=== PATIENT | female | born 1985 | race Caucasian/White ===

== ENCOUNTER 2016-08-23 08:10 | Emergency (ER) | payer MEDICAID ==
[~2016-08-23] VITALS: Ht 167.6 cm; Wt 77.3 kg
[~2016-08-23 08:10] MED LIST: ULTRAM50 MG PO
[2016-08-23 08:15] VITALS: BP 120/83; PULSE 85; RESP 16; O2SAT 100
--- NOTE | 2016-08-23 09:09 | ED.REPORT ---
HPI-Preg Under 20 Weeks Date of Service Aug 23, 2016 ED Provider: Jesse Sullivan MD 30 year old female who is 7 weeks , presents to the ER accompanied by her boyfriend complaining of vaginal bleeding and abdominal cramping onset today at 07:00 with concern for miscarriage. She reports that the cramping is similar to that associated with her normal menstrual cycle, with less bleeding. Patient denies back pain, urinary symptoms, pulmonary symptoms, nausea, vomiting, and diarrhea. Last drink was two days ago. Nursing Notes Stated Complaint: POSSIBLE MISCARRIAGE Chief Complaint: Female Abdominal Pain Nursing Notes Reviewed: Yes Allergies: Coded Allergies: No Known Allergies (Unverified , 03/09/12) Scheduled Tramadol-Expunged Drug, Do Not Renew! (Ultram-Expunged Drug, Do Not Renew!) 50 Mg Tab 50 MG PO Q6HP General Time Seen by Provider: 09:08 Chief Complaint Abdominal cramping, , Vaginal bleeding Hx Obtained From: Patient Arrived By: Walk-in Onset Occurred: 1 - 4 hours ago Symptom Duration: Since onset Location: : Abdomen lower Quality: Cramping Severity: Current: Moderate Severity: Maximum: Moderate Associated with: Denies: Blood in urine, Dysuria, Fever, Hematuria, Nausea, UTI symptoms, Vomiting Pertinent Negative: Pt denies other symptoms Similar Sx Previous: No Past Medical History Past Medical History Past Surgical History Reports: Smoking History Current Every Day Smoker Social History Alcohol Use: 1-3 per week Other Social History: Good social support Ambulatory Status Independent Review of Systems Constitutional: Denies: Chills, Fever Respiratory: Denies: Non-productive cough, Shortness of breath Cardiovascular: Denies: Chest pain GI: Denies: Diarrhea, Nausea, Vomiting Female: Reports: Pelvic pain, , Vaginal bleeding - abnl, Denies: Dysuria, Flank pain, Hematuria, Incontinence, Urinary frequency, Urinary urgency, Urination decreased, Urination increased Complete sys rev & neg: except as marked. Physical Exam Initial Vital Signs Vital Signs (First) Date Time Temp Pulse Resp B/P Pulse Ox O2 Delivery O2 Flow Rate FiO2 08/23/16 08:15 36.8 85 16 120/83 100 Initial VS: Reviewed Head / Eyes: Atraumatic, Normocephalic Neck: Supple, Non-tender, Full range of motion Respiratory: Breath sounds normal, Clear to auscultation, No respiratory distress Cardiovascular: Regular rate & rhythm, Heart sounds normal, Intact distal pulses Extremities: Vascular intact, Neuro intact, No swelling, No tenderness Skin: Warm, Dry, No cyanosis Neurologic: Alert, Oriented, Nonfocal Psychiatric: Mood/affect normal, Behavior normal, Normal thought content General/Constitutional: Awake, Alert, Well developed, Well nourished Abdomen: Soft, Non-tender, No guarding, No rebound, No distention Female Genitourinary: Exam deferred : Uterine size c/w dates Bedside US performed by me. No heart movement seen . Intrauterine observed. Interpretation & Diagnostics Bedside US performed by me. No heart movement seen . Intrauterine observed. Lab Results Interpretation Test 08/23/16 08:55 08/23/16 09:30 Urine Color Yellow (YELLOW) Urine Appearance Clear (CLEAR,HAZY) Urine pH 5.5 (5.0-8.0) Urine Specific Thornton 1.030 (1.003-1.035) Urine Protein Negativemg/dL (NEG,TRACE) Urine Glucose (UA) Negativemg/dL (NEGATIVE) Urine Ketones Tracemg/dL (NEGATIVE) Urine Occult Blood Moderate (NEGATIVE) Urine Nitrite Negative (NEGATIVE) Urine Bilirubin Negative (NEGATIVE) Urine Urobilinogen Normalmg/dL (NORMAL) Urine Leukocyte Esterase Negative (NEGATIVE) Urine RBC 0-2/hpf (0-2) Urine WBC 0-5/hpf (0-5) Urine Epithelial Cells Occasional/hpf (NONE-MOD) Urine Crystals None seen (NONE SEEN) Urine Bacteria None/hpf (NONE-FEW) Urine Hyaline Casts None/lpf (NONE) Urine Granular Casts None seen (NONE SEEN) Urine Waxy Casts None seen (NONE SEEN) Urine Red Blood Cell Casts None seen (NONE SEEN) Urine White Blood Cell Casts None seen (NONE SEEN) Urine Mucus Present (None Seen) Urine Trichomonas None seen (NONE SEEN) Urine Yeast None (NONE SEEN) Urinalysis Comment None Urine Culture Reflexed Not indicated Re-Eval/Medical Decision Med Decision/Clinical Course Fortunately there was no evidence of urinary tract infection and her Rh status is "positive". When the nurse was in the room just to check on her status she had left without discharge instructions or without having been discharged. Prior to my departure from the room initially though I did explain to her the importance of abstinence from alcohol while and I did also tell her that there would be nothing more to do if her Rh status was positive and there was no evidence of urinary tract infection. I told her to follow up immediately for uncontrolled bleeding or severe pain not controlled with Tylenol. I told her that I would provide her a referral for obstetrical provider which she did not wait around to receive. Counseled Regarding: Diagnosis, Need for follow-up, When/why to return to ED Discharge & Departure Departure Notes Patient was not in the room when we went to recheck her. She left without being discharged or receiving her discharge instructions. Primary Impression: Threatened miscarriage Disposition: AGAINST MEDICAL ADVICE Discharge Condition All VS Reviewed: Yes Condition: Stable Referrals: NOPCP (PCP) Ruben Attestation Portions of this note were transcribed by Ira Shoemaker. I, Dr. Sullivan, personally performed the history, physical exam and medical decision-making; I reviewed and confirmed the accuracy of the information in the transcribed note. Signed by: Ruben Carmen, 08/23/2016 and 09:24 Jesse Sullivan MD Aug 23, 2016 09:09 [employer] SHOEMAKER Aug 23, 2016 09:23 personally performed the history, physical exam and medical decision-making; I reviewed and confirmed the accuracy of the information in the transcribed note. Signed by: Ruben Carmen, 08/23/2016 and :24 Jesse Sullivan MD Aug 23, 2016 09:09 [employer] SH[employer]EMAKER Aug 23, 2016 09:23
[2016-08-23 09:34] LABS: APPEARANCE,URINE CLEAR (CLEAR,HAZY); COLOR,URINE YELLOW (YELLOW); OCCULT BLOOD,URINE MODERATE (NEGATIVE); PH,URINE 5.5 (5.0-8.0); UROBILINOGEN,URINE NORMAL (NORMAL)
== END 2016-08-23 10:56 | disposition left against medical advice (07) ==
LOC: SED 08:10
DX: O20.0 Threatened abortion (principal); O99.331 Smoking (tobacco) complicating pregnancy, first trimester; F17.200 Nicotine dependence, unspecified, uncomplicated; Z3A.01 Less than 8 weeks gestation of pregnancy